=== PATIENT | male | born 1965 | race American Indian/Alaskan Native ===

== ENCOUNTER 2016-09-11 19:48 | Emergency (ER) | payer BC, OTHER ==
[2016-09-11 19:57] VITALS: BP 145/82
--- NOTE | 2016-09-11 20:13 | EDM.PDOC ---
ED HPI NEURO - General Chief Complaint: Neuro Symptoms/Deficits Stated Complaint: 6PM ENTIRE RIGHT SIDE OF BODY NUMB Time Seen by Provider: 09/11/16 20:11 Source of Information: Reports: Patient History Limitations: Reports: No limitations - History of Present Illness INITIAL COMMENTS - FREE TEXT/NARRATIVE: sudden onset right body numbness & tingling sensation after eating tonight, feels slightly better now, denies CP/SOB per-se. denies straining today but did do some light yard work yesterday. no other c/o - Related Data Allergies/ADRs: Allergies Allergy/AdvReac Type Severity Reaction Status Date / Time No Known Allergies Allergy Verified 09/11/16 19:57 Home Meds: Home Meds Chlorthalidone [Chlorthalidone] 25 mg PO DAILY 09/11/16 [History] Losartan [Cozaar] 25 mg PO DAILY 09/11/16 [History] Metoprolol Succinate 25 mg PO DAILY 09/11/16 [History] atorvaSTATin Calcium [Atorvastatin Calcium] 20 mg PO DAILY 09/11/16 [History] metFORMIN HCl [Metformin HCl] 1,000 mg PO DAILY 09/11/16 [History] ED ROS GENERAL - Review of Systems Review Of Systems: ROS reveals no pertinent complaints other than HPI. ED EXAM, NEURO - Physical Exam Exam: See Below Exam Limited By: No limitations General Appearance: alert, WD/WN, no apparent distress, anxious Eye Exam: bilateral eye: PERRL (pupils ess ER @ 4mm) Ears: hearing grossly normal Throat/Mouth: Normal voice, No airway compromise Head Exam: atraumatic Neck: non-tender, full range of motion Respiratory/Chest: no respiratory distress Cardiovascular: regular rate, rhythm GI/Abdominal: soft, non tender Neurological: alert, normal mood/affect, normal gait, no motor/sensory deficits , oriented x 3. No: ataxia Extremities: normal inspection, normal range of motion Psychiatric: anxious Skin Exam: Warm, Dry Course - Vital Signs Last Recorded V/S: Last Vital Signs Temp 36.6 C 09/11/16 19:54 Pulse 70 09/11/16 19:54 Resp 20 09/11/16 19:54 BP 145/82 H 09/11/16 19:54 Pulse Ox 100 09/11/16 19:54 - Orders/Labs/Meds Orders: Active Orders 24 hr Category Date Time Status EKG 12 Lead [EKG Documentation Completion] [RC] STAT Care 09/11/16 20:10 Active Labs: Laboratory Tests 09/11/16 09/11/16 09/11/16 Range/Units 20:08 20:08 20:08 WBC 9.2 (5.0-10.0) 10^3/uL RBC 4.86 (4.6-6.2) 10^6/uL Hgb 13.8 L (14.0-18.0) g/dL Hct 40.9 (40.0-54.0) % MCV 84.2 (80-100) fL MCH 28.4 (27.0-34.0) pg MCHC 33.7 (33.0-35.0) g/dL Plt Count 314 (150-450) 10^3/uL Neut % (Auto) 63.0 (42.2-75.2) % Lymph % (Auto) 20.1 L (20.5-50.1) % Mck[place] % (Auto) 9.8 H (2-8) % Eos % (Auto) 6.0 H (1.0-3.0) % Baso % (Auto) 1.1 H (0.0-1.0) % Sodium 135 (135-145) mmol/L Potassium 3.4 L (3.6-5.0) mmol/L Chloride 97 L (101-111) mmol/L Carbon Dioxide 28.0 (21.0-31.0) mmol/L Anion Gap 13.4 BUN 24 H (7-18) mg/dL Creatinine 1.3 (0.6-1.3) mg/dL Est Cr Clr Drug Dosing 71.60 mL/min Estimated GFR (MDRD) 58 BUN/Creatinine Ratio 18.46 Glucose 238 H (74-105) mg/dL Calcium 9.0 (8.4-10.2) mg/dl Total Bilirubin 0.4 (0.2-1.0) mg/dL AST 28 (10-42) IU/L ALT 40 (10-60) IU/L Alkaline Phosphatase 109 (42-121) IU/L Troponin I < 0.02 (0.00-0.02) ng/ml Total Protein 7.1 (6.7-8.2) g/dl Albumin 3.8 (3.2-5.5) g/dl Globulin 3.3 Albumin/Globulin Ratio 1.15 - Re-Assessments/Exams Free Text/Narrative Re-Assessment/Exam: 09/11/16 21:05 results discussed with Pt & spouse. Pt states feeling much better at present. Departure - Departure Time of Disposition: 21:07 Disposition: Home, Self-Care 01 Condition: good Clinical Impression: Numbness, Paresthesia Instructions: Paresthesia Forms: ED Department Discharge Additional Instructions: 1) rest and avoid vigorous activities 2) see clinic or family doctor tomorrow for NEUROLOGY REFERRAL FOR HEMIPARAESTHESIA. 3) recheck if there is any change or concern - My Orders Last 24 Hours: My Active Orders 09/11/16 20:10 EKG 12 Lead [EKG Documentation Completion] [RC] STAT - Assessment/Plan Last 24 Hours: My Active Orders 09/11/16 20:10 EKG 12 Lead [EKG Documentation Completion] [RC] STAT
--- NOTE | 2016-09-13 13:04 | EKG ---
09/11/2016 - REMI SELLERS - EKG per my reading shows sinus rhythm at a rate of 62. [facility] /[id number]
== END 2016-09-11 21:14 | disposition home or self-care (01) ==
LOC: DL.ED 19:48
DX: R20.0 Anesthesia of skin (principal); R20.2 Paresthesia of skin; Z79.84 Long term (current) use of oral hypoglycemic drugs; Z79.899 Other long term (current) drug therapy
CPT/HCPCS: 36415; 70450; 80053; 84484; 85025; 93005; 99284

== ENCOUNTER 2021-04-05 06:01 | Day surgery (SDC) | payer OTHER ==
[~2021-04-05 06:01] MED LIST: Dextrose 5%-0.45% NaCl 1,000 ML IV SCH; Sodium Chloride 0.9% 10 ML Syringe FLUSH PRN
[2021-04-05] MEDS ORDERED: Midazolam 1 MG/ML 2 ML SDV IV ONE ×7 (06:02→07:21)
[2021-04-05] MEDS ORDERED: fentaNYL 100 MCG/2 ML SDV IV ONE ×5 (06:02→07:24)
[2021-04-05] MEDS ORDERED: Midazolam 1 MG/ML 2 ML SDV ONE (06:11)
[2021-04-05] MEDS ORDERED: fentaNYL 100 MCG/2 ML SDV ONE (06:11)
--- NOTE | 2021-04-05 08:52 | OR ---
DATE: 04/05/2021 PROCEDURE: Total colonoscopy and multiple snare polypectomies. INSTRUMENT USED: PCF-H190DL Olympus video colonoscope. PREMEDICATIONS: Fentanyl 150 mcg intravenous, Versed 4 mg intravenous. The procedure was done under pulse oximetry, BP recording, and bleach boiler filler. INDICATION: Screening colonoscopic examination is done for detection of any polypoid lesions and removal, endoscopic hemostasis therapy if needed. DESCRIPTION OF PROCEDURE: Initial rectal exam was unremarkable. Rigid anoscopy was normal. The colonoscope was passed with ease into the ileocecal area. Photographs were taken of the normal-appearing cecum identified by landmarks of appendiceal orifice and double bulged ileocecal folds. No bleeding was noted from any of the visualized areas at the commencement of the examination. The bowel preparation was found to adequate, [place] scale 2 in the right and left colon, 3 in transverse colon, total score 7. In the distal descending colon, 3 polyps were noted, photograph was taken of the largest 2 cm sized pedunculated polyp. Using cautery, snare polypectomy was done of the largest polyp, the tissues were retrieved and sent for histopathology. Photograph was taken of polypectomy site that was clean. Two other polyps noted, 8 mm sized and diminutive ones removed by cold snare polypectomy technique and sent for histopathology. No bleeding was noted from any of the visualized areas at the completion of examination. IMPRESSION: Multiple colonic polyps. The patient tolerated the procedure well. [facility] /[id number]
[2021-04-05 10:12] VITALS: PULSE 57
[2021-04-05 10:13] VITALS: BP 124/58
--- NOTE | 2021-04-05 10:34 | LETTER ---
04/05/2021 RE: MARLO MINOR TASIATITA Munguia : 1965 Rayray Coates MD [facility] [address] [place] [address] Coates: Mr. Ashlee Thomas had colonoscopic examination done this morning and he tolerated the procedure well. I herewith send a copy of the endoscopy note and photographs for your review. Thank you. Sincerely, [facility] /[id number]
== END 2021-04-05 09:50 | disposition home or self-care (01) ==
LOC: DL.ENDO 06:01
PROVIDERS: ATTEND Internal Medicine Gastroenterology
DX: D12.4 Benign neoplasm of descending colon (principal); Z12.11 Encounter for screening for malignant neoplasm of colon; E66.09 Other obesity due to excess calories; E78.5 Hyperlipidemia, unspecified; I10 Essential (primary) hypertension; E11.9 Type 2 diabetes mellitus without complications; Z01.812 Encounter for preprocedural laboratory examination; Z20.822 Contact with and (suspected) exposure to COVID-19; Z98.890 Other specified postprocedural states; Z88.8 Allergy status to other drugs, medicaments and biological substances; Z68.41 Body mass index [BMI] 40.0-44.9, adult
CPT/HCPCS: 45385; 87635; J2250; J3010; J7042; U0002

== ENCOUNTER 2023-12-15 15:41 | Emergency (ER) | payer BC, OTHER ==
[2023-12-15 16:10] LABS: BASOPHILS PERCENT AUTO 0.2 % (0.0-1.0); EOSINOPHILS PERCENT AUTO 1.2 % (1.0-3.0); HEMATOCRIT 40.4 % (40.0-54.0); HEMOGLOBIN 13.2 g/dL (14.0-18.0); LYMPHOCYTES PERCENT AUTO 7.4 % (20.5-50.1); MEAN CORPUSCULAR HEMOGLOBIN 27.7 pg (27.0-34.0); MEAN CORPUSCULAR HGB CONC 32.7 g/dL (33.0-35.0); MEAN CORPUSCULAR VOLUME 84.7 fL (80-100); MONOCYTES PERCENT AUTO 7.8 % (2-8); NEUTROPHILS PERCENT AUTO 83.4 % (42.2-75.2); PLATELET COUNT,PLT 255 10^3/uL (150-450); RED BLOOD CELL COUNT 4.77 10^6/uL (4.6-6.2); WHITE BLOOD CELL COUNT,WBC 17.7 10^3/uL (5.0-10.0)
[2023-12-15 16:39] LABS: ALANINE AMINOTRANSFERASE,ALT 44 U/L (16-63); ALBUMIN 3.3 g/dL (3.4-5.0); ALKALINE PHOSPHATASE 129 U/L (46-116); ASPARTATE AMNIOTRANSFERASE,AST 25 U/L (15-37); BILIRUBIN TOTAL 0.7 mg/dL (0.2-1.0); BLOOD UREA NITROGEN,BUN 15 mg/dL (7-18); BUN/CREATININE RATIO 14.6 (No establ ref range); CALCIUM 9.2 mg/dL (8.5-10.1); CARBON DIOXIDE,CO2 27 mmol/L (21-32); CHLORIDE,CL 106 mmol/L (98-107); CREATINE KINASE,CK 259 U/L (39-308); CREATININE 1.03 mg/dL (0.70-1.30); GLUCOSE RANDOM 169 mg/dL (70-99); PROTEIN TOTAL,TP 7.1 g/dL (6.4-8.2); SODIUM,NA 140 mmol/L (136-145)
[2023-12-15 16:42] LABS: A/G RATIO 0.87; ESTIMATED GFR 84 mL/min (>=60)
[2023-12-15 17:30] VITALS: BP 143/78; PULSE 72
[2023-12-15] MEDS: Ondansetron 4 MG/2 ML SDV IVPUSH ONE ×2 (17:46→18:42)
[2023-12-15] MEDS: HYDROmorphone 0.5 MG/0.5 ML Syringe IVPUSH ONE ×2 (17:47→18:41)
== END 2023-12-15 18:44 ==
LOC: DL.ED 15:41
DX: S70.11XA Contusion of right thigh, initial encounter (principal); I10 Essential (primary) hypertension; E78.00 Pure hypercholesterolemia, unspecified; E11.9 Type 2 diabetes mellitus without complications; Z79.899 Other long term (current) drug therapy; Z79.84 Long term (current) use of oral hypoglycemic drugs; Z88.8 Allergy status to other drugs, medicaments and biological substances; Z68.42 Body mass index [BMI] 45.0-49.9, adult; W01.0XXA Fall on same level from slipping, tripping and stumbling without subsequent striking against object, initial encounter
CPT/HCPCS: 36415; 73552; 80053; 82550; 85025; 96374; 96375; 96376; 99285; J1170; J2405